=== PATIENT | male | born 1950 | race American Indian/Alaskan Native ===

== ENCOUNTER 2018-11-30 11:54 | Outpatient (CLI) | payer MEDICARE, OTHER ==
--- NOTE | 2018-11-30 13:29 | XRay Report ---
LEFT RIBS, 3 VIEWS INDICATION: RIB PAIN. COMPARISON: None. IMPRESSION: No displaced left rib fracture or bony lesion is identified on x-ray. The left lung is clear. Signer Name: Pa Rodriguez Jr, MD Signed: 11/30/2018 1:25 PM Workstation Name: [id number]
== END 2018-11-30 11:55 | disposition home or self-care (01) ==
LOC: SPVIMAG 11:54
PROVIDERS: ATTEND Internal Medicine
DX: R07.81 Pleurodynia (principal)